=== PATIENT | male | born 1965 | race African-American/Black ===

== ENCOUNTER 2018-03-08 17:47 | Emergency (ER) | payer BC, OTHER ==
[~2018-03-08] VITALS: Ht 182.9 cm; Wt 88.0 kg
--- NOTE | 2018-03-08 17:50 | NUR ---
PT WALKED INTO THE ER WITH A C/O RT HAND LAC WRAPPED IN A TOWEL. PT STATED THAT HE CUT HIS HAND ON A SHARP METAL BOX WHEN PICKING UP HIS WALLET. PT AMBULATED TO BED #9 WITH A STEADY GAIT.
[2018-03-08] MEDS ORDERED: LIDOCAINE HCL/PF 1% 30 ML SDV ONE (17:59)
[2018-03-08] MEDS ORDERED: ACETAMINOPHEN ES 500 MG TABLET PO ONE (18:30)
[2018-03-08] MEDS ORDERED: TDAP [DIPH/PERTUSSIS/TET] 0.5 ML VIAL IM ONE ×2 (18:30)
[2018-03-08] MEDS ORDERED: ACETAMINOPHEN ES 500 MG TABLET ONE (18:30)
--- NOTE | 2018-03-08 18:47 | NUR ---
PT'S HAND WAS CLEANED, TRIPLE ANTIBIOTIC APPLIED, AND WRAPPED WITH 4X4 AND KERLEX.
--- NOTE | 2018-03-08 18:48 | NUR ---
Patient discharged to home in stable condition. Written and verbal after care instructions given. Patient verbalizes understanding of instruction. PT AMBULATED OUT TO THE LOBBY WITH A STEADY GAIT. VSS.
[2018-03-08 18:52] VITALS: BP 143/69
== END 2018-03-08 18:48 | disposition home or self-care (01) ==
LOC: ER 17:52
DX: S61.411A Laceration without foreign body of right hand, initial encounter (principal); W45.8XXA Other foreign body or object entering through skin, initial encounter; Y93.89 Activity, other specified; Y92.59 Other trade areas as the place of occurrence of the external cause; Y99.8 Other external cause status
CPT/HCPCS: 12002; 90471; 90715; 99283; A4606; A6402 ×2; J3490; Z7610

== ENCOUNTER 2019-06-13 09:11 | Emergency (ER) | payer OTHER ==
[~2019-06-13] VITALS: Ht 177.8 cm; Wt 74.8 kg
--- NOTE | 2019-06-13 09:15 | NUR ---
PT BIB [employer] FOR CHEST PAIN BEFORE GOING TO COURT, PT IS AAOX4, NOT IN RESPIRATORY DISTRESS, HOOKED TO MONITOR, KEPT RESTED AND COMFORTABLE, WILL CONTINUE TO MONITOR.
--- NOTE | 2019-06-13 09:17 | NUR ---
PT SEEN AND EXAMINED BY .
--- NOTE | 2019-06-13 09:25 | NUR ---
IV LINE ESTABLISHED, BLOOD DRAWNED AND SENT TO LAB.
[2019-06-13 09:29] LABS: BASOPHILS % (AUTO) 1.2 % (0.0-2.0); EOSINOPHILS % (AUTO) 3.3 % (0.0-6.0); HEMATOCRIT 39 % (39-51); HEMOGLOBIN 13.2 g/dL (13.5-17.5); LYMPHOCYTES # (AUTO) 0.7 /CMM (0.8-4.8); MEAN CORPUSCULAR HGB CONC 34 g/dl (31.0-36.0); MEAN CORPUSCULAR VOLUME 97 fL (80-96); MONOCYTES # (AUTO) 0.3 /CMM (0.1-1.30); MONOCYTES % (AUTO) 11.9 % (2.0-12.0); NEUTROPHILS # (AUTO) 1.6 /CMM (1.8-8.9); NEUTROPHILS % (AUTO) 57.6 % (43.0-81.0); PLATELET COUNT (AUTO) 240 /CMM (150-450); RED BLOOD CELL COUNT(AUTO) 4.03 MIL/uL (4.5-6.0); WHITE BLOOD COUNT (AUTO) 2.8 K/uL (4.3-11.0)
[2019-06-13 09:35] LABS: CALCIUM, SERUM 9.1 mg/dL (8.5-10.1); CARBON DIOXIDE 30 mmol/L (21-32); CHLORIDE 104 mmol/L (98-107); CREATININE 0.9 mg/dL (0.6-1.3); GLUCOSE 90 mg/dL (74-106); POTASSIUM 4.1 mmol/L (3.5-5.1); SODIUM SERUM 141 mmol/L (136-145); UREA NITROGEN, BLOOD 14 mg/dL (7-18)
[2019-06-13 09:40] LABS: ALANINE AMINOTRANSFERASE 80 U/L (12-78); ALBUMIN 3.7 g/dL (3.4-5.0); ALKALINE PHOSPHATASE 64 U/L (46-116); ASPARTATE AMINOTRANSFERASE 50 U/L (15-37); BILIRUBIN,DIRECT 0.2 mg/dL (0.0-0.2); BILIRUBIN,TOTAL 0.9 mg/dL (0.2-1.0); TOTAL PROTEIN, SERUM 7.1 g/dL (6.4-8.2)
--- NOTE | 2019-06-13 09:45 | NUR ---
PT WHEELED TO CT SCAN VIA [employer].
--- NOTE | 2019-06-13 11:35 | NUR ---
IV removed. Catheter intact and site benign. Pressure and 4x4 applied to site. No bleeding noted. Patient discharged in custody in stable condition. Written and verbal after care instructions given. Patient verbalizes understanding of instruction.
[2019-06-13 11:43] VITALS: BP 133/78
== END 2019-06-13 11:46 ==
LOC: ER 09:14
DX: R56.9 Unspecified convulsions (principal); R07.89 Other chest pain; S00.03XA Contusion of scalp, initial encounter; W22.8XXA Striking against or struck by other objects, initial encounter; Y93.89 Activity, other specified; Y92.830 Public park as the place of occurrence of the external cause; Y99.8 Other external cause status
CPT/HCPCS: 36415; 70450-TC; 71045-TC; 72125-TC; 72131-TC; 80048-TC; 80076-TC; 84484-TC; 85025-TC